=== PATIENT | male | born 1990 | race Caucasian/White ===

== ENCOUNTER 2020-06-18 23:29 | Emergency (ER) | payer OTHER ==
[2020-06-19] MEDS ORDERED: Naproxen 500 MG TAB ONE (01:30)
[2020-06-19] MEDS ORDERED: Cyclobenzaprine 10 MG TAB ONE (01:30)
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
== END 2020-06-19 01:38 ==
LOC: NAV ERS 23:29
DX: S20.211A Contusion of right front wall of thorax, initial encounter (principal); M62.838 Other muscle spasm; K21.9 Gastro-esophageal reflux disease without esophagitis; J45.909 Unspecified asthma, uncomplicated; Y04.8XXA Assault by other bodily force, initial encounter
CPT/HCPCS: 71250; 72128